=== PATIENT | female | born 1995 | race Caucasian/White ===

== ENCOUNTER 2018-04-29 14:10 | Emergency (ER) | payer MEDICAID, OTHER ==
[~2018-04-29] VITALS: Ht 160 cm; Wt 46.0 kg
[~2018-04-29 14:10] MED LIST: FERR324T4 PO
[2018-04-29 14:12] VITALS: BP 113/61; PULSE 76; RESP 16; TEMP 98.8; O2SAT 97
[2018-04-29] MEDS ORDERED: CARB200T PO (14:27)
[2018-04-29] MEDS ORDERED: PENI500T PO (14:27)
--- NOTE | 2018-04-29 14:31 | PD ---
HPI Chief Complaint: Oral / Dental Pain or Problem Time Seen by Provider: 14:26 Travel History International Travel<30 days: No Contact w/Intl Traveler<30days: No Traveled to known affect area: No History of Present Illness HPI 23-year-old female presents emergency department complaining of left lower tooth pain that started several days ago. Says that the tooth pain has been increasing in severity. Says this morning she woke up with left ear pain and decided to come to the emergency department today for evaluation. Says that Tylenol decreases her pain for approximately 1 hour but returns quickly. Says the pain is 10/10 and radiating from the tooth to the left ear. Says she is also developed pain with opening closing and grinding of her jaw. She denies fevers or chills. She denies history of similar pain previously. She has chronic medical issues medication use. Since her last dental checkup was 11 years ago. PFSH Past Medical History Hx Anticoagulant Therapy: No Diabetes: No Diminished Hearing: No Tetanus Vaccination: Unknown Influenza Vaccination: Yes ?: Unknown LMP: 1 WEEK AGO : 3 Para: 1 Miscarriage: 1 : 0 Past Surgical History Eye Surgery: Yes (LEFT LENS ) Social History Alcohol Use: Yes (WEEKENDS) Tobacco Use: Yes (/2 PPD) Substance Use: No Allergies-Medications (Allergen,Severity, Reaction): Coded Allergies: No Known Allergies (Verified Adverse Reaction, Unknown, 04/29/18) Reported Meds & Prescriptions Reported Meds & Active Scripts Active Penicillin V Potassium 500 Mg Tab 500 Mg PO Q8H 7 Days Carbamazepine 200 Mg Tab 200 Mg PO BID 3 Days Review of Systems Except as stated in HPI: all other systems reviewed are Neg Physical Exam Narrative GENERAL: Well-nourished, well-developed patient, in NAD SKIN: Focused skin assessment warm/dry. No rashes or lesions. HEAD: Normocephalic. Atraumatic. EYES: No scleral icterus. No injection or drainage. PERRLA, EOMI THROAT: No pharyngeal injection, exudates, or tonsillar hypertrophy. Airway is patent. Left lower molar tooth area-tenderness palpation of the area. No bulging or fluctuance to the area. Poor dentition NECK: Supple, trachea midline. No JVD. Mild left anterior cervical lymphadenopathy. No meningismus. CARDIOVASCULAR: Regular rate and rhythm without murmurs, gallops, or rubs. RESPIRATORY: Breath sounds equal bilaterally. No accessory muscle use. No wheezes, rales, or rhonchi MUSCULOSKELETAL: No cyanosis, or edema. BACK: Nontender without obvious deformity. No CVA tenderness. Data Data Last Documented VS Vital Signs Date Time Temp Pulse Resp B/P (MAP) Pulse Ox O2 Delivery O2 Flow Rate FiO2 04/29/18 14:12 98.8 76 16 113/61 (78) 97 Orders Orders Ed Discharge Order (04/29/18 14:31) MDM Medical Decision Making Medical Screen Exam Complete: Yes Emergency Medical Condition: Yes Differential Diagnosis Tooth abscess, dental infection, TMJ, trigeminal neuralgia Narrative Course 23-year-old female presents emergency department for evaluation of left tooth pain that started several days ago. The exam findings consistent with a dental infection. Patient may have developed TMJ as a results of the tooth pain. Carbamazepine for development of TMJ. Penicillin for tooth infection. She is advised to follow-up with a dentist as discussed. Diagnosis Primary Impression: Dental infection Referrals: Dentist Additional Instructions: Take medication as prescribed. You may cut the carbamazepine in half for your pain. Use Tylenol or Motrin per package instructions for pain as well. I recommend he follow-up with your dentist as soon as possible. Scripts Penicillin V Potassium (Penicillin V Potassium) 500 Mg Tab 500 MG PO Q8H for Infection for 7 Days, #21 TAB 0 Refills Prov: Marco A Aponte MD 04/29/18 Carbamazepine (Carbamazepine) 200 Mg Tab 200 MG PO BID for Pain Management for 3 Days, #6 TAB 0 Refills Prov: Marco A Aponte MD 04/29/18 Disposition: 01 DISCHARGE HOME Condition: Stable Cristy Crockett Apr 29, 2018 14:31
== END 2018-04-29 14:51 | disposition home or self-care (01) ==
LOC: PHEFT 14:10
DX: K04.7 Periapical abscess without sinus (principal); H92.02 Otalgia, left ear; F17.210 Nicotine dependence, cigarettes, uncomplicated
CPT/HCPCS: 99283